=== PATIENT | female | born 1995 | race Caucasian/White ===

== ENCOUNTER 2021-08-08 08:39 | Emergency (ER) | payer SELFPAY ==
[~2021-08-08] VITALS: Ht 180.3 cm; Wt 93.2 kg
[2021-08-08 09:08] LABS: BASO # 0.1 K/mm3 (0.0-0.2); BASO % 0.5 % (0.0-2.0); EOS # 0.1 K/mm3 (0.0-0.7); EOS % 1.2 % (0-4.0); GRAN # 8.2 K/mm3 (1.4-6.5); GRAN % 74.5 % (42.2-75.2); HEMATOCRIT 38.6 % (37.0-47.0); HEMOGLOBIN 12.5 g/dl (12.5-16.0); LYMPH # 1.5 K/mm3 (1.2-3.4); LYMPH % 13.7 % (20.0-51.0); MEAN CELL VOLUME 85 fl (80.0-100.0); MEAN CORPUSCULAR HEMOGLOBIN 28 pg (27.0-31.0); MEAN CORPUSCULAR HGB CONC 32 g/dl (33.0-37.0); MEAN PLATELET VOLUME 9.7 fl (7.4-10.4); MONO # 1.1 K/mm3 (0.1-0.6); MONO % 9.8 % (1.7-9.3); PLATELET COUNT 363 K/mm3 (130-400); RED BLOOD COUNT 4.55 M/mm3 (4.10-5.30); REDCELL DISTRIBUTION WIDTH-CV 13.2 % (11.5-14.5)
[2021-08-08 09:14] LABS: COLLECTION METHOD CLEAN CATCH
[2021-08-08 09:24] LABS: BILIRUBIN,TOTAL 0.5 mg/dL (0.2-1.2); CALCIUM 9.6 mg/dL (8.4-10.2); CREATININE, serum 0.85 mg/dL (0.57-1.11); TOTAL PROTEIN 7.9 gm/dL (6.2-8.1)
[2021-08-08 09:24] LABS: MUCOUS Present /lpf; PH 8 (5-8); URINE APPEARANCE Cloudy; URINE BACTERIA Moderate /hpf; URINE BILIRUBIN Negative (NEGATIVE); URINE BLOOD Negative (NEGATIVE); URINE GLUCOSE Negative (NEGATIVE); URINE KETONE Negative (NEGATIVE); URINE LEUKOCYTE ESTERASE 3+ (NEGATIVE); URINE NITRATE Positive (NEGATIVE); URINE PROTEIN(semi-quant) 1+ (NEGATIVE)
[2021-08-08 09:25] LABS: URINE COLOR Amber
[2021-08-08] MEDS ORDERED: LEVAQUIN 750MG750 M1 PO (09:39)
[2021-08-08 09:47] VITALS: BP 129/91; PULSE 102; TEMP 100.1
== END 2021-08-08 10:15 | disposition home or self-care (01) ==
LOC: COL.ER 08:39
PROVIDERS: Emergency Medicine
DX: N12 Tubulo-interstitial nephritis, not specified as acute or chronic (principal); Z87.891 Personal history of nicotine dependence; Z20.822 Contact with and (suspected) exposure to COVID-19; Z32.02 Encounter for pregnancy test, result negative